=== PATIENT | male | born 1950 | race Caucasian/White ===

== ENCOUNTER 2017-03-13 01:31 | Emergency (ER) | payer MEDICARE, OTHER ==
[~2017-03-13] VITALS: Ht 190.5 cm; Wt 170.5 kg
[~2017-03-13 01:31] MED LIST: ALDACTONE 25MG25 M1 PO; ALDACTONE50 MG PO; AMIODARONE PO; ASPIRIN 32325 MG/TAB PO; COMBIGAN 0.2%-010 ML OP; COUMADIN 5MG5 MG/TAB PO; COZAAR 50MG50 MG/TAB PO; DIGOXIN0.125 MG PO; HYDROCORTISO28.35 G1 TP; INSULIN 70/3100 U/ML SQ; KLOR-CON20 MEQ PO; LANOXIN 0.120.125 MG PO; LASIX 40MG TABL40 MG PO; LIPITOR 10MG10 MG PO; MAG-OX 400400 MG/TAB PO; METFORMIN HCL850 MG PO; NITROSTAT0.4 MG/TAB SL; NORCO 325 MG-51 TAB PO; POTASSIUM CL 220 MEQ PO; TIKOSYN0.5 MG PO; TOPROL XL100 MG PO; TRAVATAN Z 2.52.5 ML OU; TYLENOL 500MG500 MG PO; XALATAN EYE DROPS OP
[2017-03-13 01:35] VITALS: TEMP 98.3
[2017-03-13] MEDS ORDERED: MAG-OX 400400 MG/TAB PO (01:47)
[2017-03-13] MEDS ORDERED: COZAAR 50MG50 MG/TAB PO (01:47)
[2017-03-13] MEDS ORDERED: LOPRESSOR100 MG PO (01:47)
[2017-03-13] MEDS ORDERED: ALDACTONE 25MG25 M1 PO (01:47)
[2017-03-13] MEDS ORDERED: GLUCOPHAGE850 MG/TAB PO (01:50)
[2017-03-13] MEDS ORDERED: TIKOSYN0.5 MG PO (01:50)
[2017-03-13] MEDS ORDERED: NOVOLIN 70/30 710 ML SQ ×2 (01:51→01:52)
[2017-03-13 02:03] LABS: BASO % 0.7 % (0.0-2.0); EOS # 0.1 (0.0-0.7); EOS % 2.3 % (0-4.0); GRAN # 4.3 (1.4-6.5); GRAN % 72.3 % (42.2-75.2); LYMPH % 16.1 % (20.0-51.0); MEAN CELL VOLUME 98 fl (80.0-100.0); MEAN CORPUSCULAR HGB CONC 32 g/dl (33.0-37.0); MEAN PLATELET VOLUME 8.8 fl (7.4-10.4); MONO # 0.5 (0.1-0.6); MONO % 8.4 % (1.7-9.3); PLATELET COUNT 196 K/mm3 (130-400); RED BLOOD COUNT 3.34 M/mm3 (4.20-5.60)
[2017-03-13 02:04] LABS: HEMATOCRIT 32.8 % (42.0-52.0); HEMOGLOBIN 10.6 g/dl (13.5-18.0); MEAN CORPUSCULAR HEMOGLOBIN 32 pg (27.0-31.0)
[2017-03-13 02:08] LABS: INR 1.1 (0.8-3.0); PROTHROMBIN TIME 11.8 SECONDS (9.7-12.8)
[2017-03-13 02:12] LABS: ADJUSTED CALCIUM 8.8 mg/dL (8.4-10.2); BILIRUBIN,TOTAL 0.7 mg/dL (0.0-1.0); CALCIUM 8.8 mg/dL (8.4-10.2); CREATININE, serum 0.85 mg/dL (0.66-1.25); POTASSIUM 4.5 mmol/L (3.4-5.0); TOTAL PROTEIN 7.5 gm/dL (6.4-8.2)
[2017-03-13 02:15] VITALS: BP 160/99; PULSE 92
[2017-03-13 02:25] LABS: TROPONIN-I 1.11 ng/mL (0.000-0.034)
== END 2017-03-13 02:25 | disposition short-term general hospital (02) ==
LOC: COL.ER 01:31
PROVIDERS: Emergency Medicine
DX: I21.9 Acute myocardial infarction, unspecified (principal); I10 Essential (primary) hypertension; E11.9 Type 2 diabetes mellitus without complications; I48.91 Unspecified atrial fibrillation; I25.10 Atherosclerotic heart disease of native coronary artery without angina pectoris; Z95.5 Presence of coronary angioplasty implant and graft; Z79.4 Long term (current) use of insulin
CPT/HCPCS: J1644; J3101